=== PATIENT | female | born 1985 | race Caucasian/White ===

== ENCOUNTER → 2022-02-20 | Outpatient (CLI) | payer SELFPAY ==
[2022-02-20 12:08] LABS: hCG Titer Quant., Serum 28473 mIU/mL (1-3)
== END | disposition home or self-care (01) ==
LOC: WOBLAB 10:25
PROVIDERS: Visit Provider Student in an Organized Health Care Education/Training Program
DX: O20.0 Threatened abortion (principal); N91.2 Amenorrhea, unspecified
CPT/HCPCS: 36415; 84702